=== PATIENT | female | born 1975 | race Caucasian/White ===

== ENCOUNTER 2018-03-02 09:21 | Emergency (ER) | payer BC, OTHER ==
[2018-03-02 09:29] VITALS: BP 127/76
--- NOTE | 2018-03-02 10:25 | UC ---
Skin Complaint HPI - HPI Summary HPI Summary: Has had a sebaceous cyst on the scalp for the past decade, became painful about a month ago and saw a metal die finisher. Offered excision, but she declined at that time. Over the past 2 days has had increased pain and swelling, no drainage. Has used occasional compresses, no analgesics. Two nights ago she tried to poke it with a needle. Has been using Harris seal and compresses. - History of Current Complaint Chief Complaint: UCSkin Time Seen by Provider: 03/02/18 10:11 Stated Complaint: PAINFUL BUMP ON HEAD Hx Obtained From: Patient Hx Last Menstrual Period: 02/28/18 Onset/Duration: Gradual Onset, Lasting Days Timing: Constant Onset Severity: Moderate Current Severity: Moderate Pain Intensity: 4 Location: Discrete Aggravating Factor(s): Touch Alleviating Factor(s): OTC Creams/Salves Associated Signs & Symptoms: Positive: Negative - Allergy/Home Medications Allergies/Adverse Reactions: Allergies Allergy/AdvReac Type Severity Reaction Status Date / Time No Known Allergies Allergy Verified 03/02/18 09:29 Review of Systems All Other Systems Reviewed And Are Negative: Yes Constitutional: Positive: Negative Skin: Positive: Negative Eyes: Positive: Negative ENT: Positive: Negative Respiratory: Positive: Negative Cardiovascular: Positive: Negative Gastrointestinal: Positive: Negative Genitourinary: Positive: Other - recent use of probiotic for relief of gi discomfort related to antibiotics used for skin rash Motor: Positive: Negative Neurovascular: Positive: Negative Musculoskeletal: Positive: Negative Neurological: Positive: Negative Psychological: Positive: Negative Is Patient Immunocompromised?: No PMH/Surg Hx/FS Hx/Imm Hx Previously Healthy: Yes - Surgical History Surgical History: None - Family History Known Family History: Positive: Non-Contributory - Social History Lives: With Family Alcohol Use: Weekly Substance Use Type: None Smoking Status (MU): Never Smoked Tobacco Physical Exam Triage Information Reviewed: Yes Appearance: Well-Appearing Vital Signs: Initial Vital Signs Temp 97.9 F 03/02/18 09:25 Pulse 88 03/02/18 09:25 Resp 18 03/02/18 09:25 BP 127/76 03/02/18 09:25 Pulse Ox 100 03/02/18 09:25 Skin Exam: Other - 15 x 10 mm raised nodule without pointing left parietal area. No drainage, overlying erythema. Course/Dx - Course Course Of Treatment: compress, antibiotic if increasing redness and swelling, follow up with dermatology - Differential Diagnoses - Skin Complaint Differential Diagnoses: Abscess, Other - sebaceous cyst - Diagnoses Provider Diagnoses: sebaceous cyst with early abscess formation. Discharge - Sign-Out/Discharge Documenting (check all that apply): Patient Departure All imaging exams completed and their final reports reviewed: No Studies - Discharge Plan Condition: Stable Disposition: HOME Prescriptions: Cephalexin CAP* [Keflex 500 CAP*] 500 mg PO TID #15 cap Patient Education Materials: Cyst (ED) Referrals: Sarahi Tobar MD [Primary Care Provider] - Additional Instructions: As reviewed, you have evidence of early abscess formation, but it is not at a stage where it can be incised and drained. Continue hot compressing, and you can begin use of cephalexin if you have increasing size and redness of the nodule. Follow up with dermatology as arranged. - Billing Disposition and Condition Condition: STABLE Disposition: Home
== END 2018-03-02 10:40 | disposition home or self-care (01) ==
LOC: UCEAST 09:21
DX: L72.3 Sebaceous cyst (principal)
CPT/HCPCS: 99212; G0463